=== PATIENT | male | born 1990 | race Caucasian/White ===

== ENCOUNTER 2022-10-05 17:44 | Emergency (ER) | payer MEDICAID ==
[~2022-10-05] VITALS: Ht 157.5 cm; Wt 59.0 kg
--- NOTE | 2022-10-05 18:08 | NUR ---
PT JAMIL FROM THE STREETS, BYSTANDER CALLED 911, WAS "PASSED OUT/SLEEPING" IN THE SIDEWALK. STABLE VITALS. PPT IS SEEN IN ED MULTIPLE TIME FOR ALCOHOL ABUSE. PLACED ON MONITOR. VSS. AWAITING MD FENTON.
--- NOTE | 2022-10-05 21:05 | NUR ---
DR. JORGE COTA AT PT'S BEDSIDE FOR WOUND CARE
--- NOTE | 2022-10-05 22:03 | NUR ---
Patient discharged to home in stable condition. Written and verbal after care instructions given. Patient verbalizes understanding of instruction.
[2022-10-05 22:04] VITALS: BP 128/78
[2022-10-06] MEDS ORDERED: MIRT-91 PO (10:58)
[2022-10-06] MEDS ORDERED: HYDR50TA61 PO (10:58)
[2022-10-06] MEDS ORDERED: QUET25TA PO (10:58)
[2022-10-06] MEDS ORDERED: CITA20TA16 PO (10:58)
[2022-10-06] MEDS ORDERED: OMEP20CA15 PO (10:58)
== END 2022-10-05 22:04 | disposition home or self-care (01) ==
LOC: ER 17:46
DX: S01.81XA Laceration without foreign body of other part of head, initial encounter (principal); F10.129 Alcohol abuse with intoxication, unspecified; W18.39XA Other fall on same level, initial encounter; Y93.89 Activity, other specified; Y92.89 Other specified places as the place of occurrence of the external cause; Y99.8 Other external cause status; Y90.9 Presence of alcohol in blood, level not specified
CPT/HCPCS: 70450-TC; 72125-TC

== ENCOUNTER 2022-10-06 10:23 | Inpatient (IN) | payer MEDICAID ==
[~2022-10-06] VITALS: Ht 157.5 cm; Wt 52.2 kg
[2022-10-06] MEDS ORDERED: IV NS 0.9% 1,000 ML BAG IV ONE (10:30)
[2022-10-06] MEDS ORDERED: NALOXONE PREFILLED SYRINGE 2 MG/2 ML SYRINGE ONE (10:30)
--- NOTE | 2022-10-06 10:35 | NUR ---
BP-162/96, HR-109, R-22, R4OAJ-37% 20mg etomidate and 80mg rocuronium administered
--- NOTE | 2022-10-06 10:36 | NUR ---
pt intubated, 24cm at the lip line Addendum: 10/06/22 at 1813 by DUYEN ET TUBE SIZE 7.5
--- NOTE | 2022-10-06 10:55 | NUR ---
16FR COUDE LANDRY CATHETER PLACE. URIEN CLEAR AND YELLOW, 400CC OUTPUT.
[2022-10-06] MEDS ORDERED: CITA20TA16 PO (10:58)
[2022-10-06] MEDS ORDERED: QUET25TA PO (10:58)
[2022-10-06] MEDS ORDERED: OMEP20CA15 PO (10:58)
[2022-10-06] MEDS ORDERED: MIRT-91 PO (10:58)
[2022-10-06] MEDS ORDERED: HYDR50TA61 PO (10:58)
[2022-10-06 11:07] LABS: BASOPHILS % (AUTO) 0.3 % (0.0-2.0); EOSINOPHILS % (AUTO) 0.4 % (0.0-6.0); HEMATOCRIT 45 % (39-51); HEMOGLOBIN 14.7 g/dL (13.5-17.5); LYMPHOCYTES # (AUTO) 1.3 K/uL (0.8-4.8); LYMPHOCYTES % (AUTO) 15.4 % (20.0-44.0); MEAN CORPUSCULAR HGB CONC 32 g/dl (31.0-36.0); MEAN CORPUSCULAR VOLUME 86 fL (80-96); MONOCYTES # (AUTO) 0.3 K/uL (0.1-1.30); MONOCYTES % (AUTO) 4.1 % (2.0-12.0); NEUTROPHILS # (AUTO) 6.6 K/uL (1.8-8.9); NEUTROPHILS % (AUTO) 79.8 % (43.0-81.0); PLATELET COUNT (AUTO) 290 K/uL (150-450); RED BLOOD CELL COUNT(AUTO) 5.26 MIL/uL (4.5-6.0); WHITE BLOOD COUNT (AUTO) 8.3 K/uL (4.3-11.0)
[2022-10-06 11:22] LABS: CARBON DIOXIDE 28 mmol/L (21-32); CHLORIDE 100 mmol/L (98-107); CREATININE 0.9 mg/dL (0.6-1.3); GLUCOSE 197 mg/dL (74-106); SERUM AMMONIA 22 umol/L (11-32); SODIUM SERUM 136 mmol/L (136-145); UREA NITROGEN, BLOOD 5 mg/dL (7-18)
[2022-10-06] MEDS ORDERED: IV D5/ 0.9% NACL 1,000 ML IV PRN ×2 (11:30)
[2022-10-06 11:35] LABS: ALANINE AMINOTRANSFERASE 97 U/L (12-78); ALBUMIN 4.4 g/dL (3.4-5.0); ALCOHOL, BLOOD 712 mg/dL (0-0); ALKALINE PHOSPHATASE 96 U/L (46-116); ASPARTATE AMINOTRANSFERASE 167 U/L (15-37); BILIRUBIN,DIRECT 0.1 mg/dL (0.0-0.2); BILIRUBIN,TOTAL 0.2 mg/dL (0.2-1.0); TOTAL PROTEIN, SERUM 8.3 g/dL (6.4-8.2)
[2022-10-06 11:36] LABS: ACETAMINOPHEN < 10 ug/ml (10-30); THYROID STIMULATING HORMONE 1.243 uIU/mL (0.358-3.74)
--- NOTE | 2022-10-06 11:40 | NUR ---
URINE COLLECTED AND SENT
--- NOTE | 2022-10-06 11:40 | NUR ---
COVID SWAB COLLECTED AND SENT TO LAB
--- NOTE | 2022-10-06 11:55 | NUR ---
PT'S FAMILY AT BEDSIDE
--- NOTE | 2022-10-06 11:59 | NUR ---
PT TAKEN TO RADIOLOGY FOR CT
[2022-10-06] MEDS ORDERED: NALOXONE PREFILLED SYRINGE 2 MG/2 ML SYRINGE IV ONE (12:30)
[2022-10-06 12:48] LABS: BILIRUBIN,URINE NEGATIVE (NEGATIVE); COLOR,URINE YELLOW (YELLOW); LEUKOCYTE ESTERASE ,URINE NEGATIVE (NEGATIVE); NITRITE, URINE NEGATIVE (NEGATIVE); PROTEIN,URINE NEGATIVE (NEGATIVE); UGLUCOSE TRACE mg/dL (NEGATIVE); UROBILINOGEN,URINE 0.2 EU/dL (0.2)
[2022-10-06] MEDS ORDERED: PIPERACILLIN /TAZOBACTAM 3.375 G in IV D5W 50 ML IV ONE (13:00)
[2022-10-06] MEDS ORDERED: IV NS 0.9% 1,000 ML IV ONE (13:00)
[2022-10-06 13:05] LABS: BACTERIA,URINE Few /HPF (None Seen)
[2022-10-06] MEDS ORDERED: ONDANSETRON HCL/PF 4 MG/2 ML VIAL IVP PRN (14:00)
[2022-10-06] MEDS ORDERED: Z GUARD REMEDY 4 OZ OINT TP PRN (14:00)
[2022-10-06] MEDS ORDERED: MAG HYDROX/AL HYDROX/SIMETH 30 ML UDC PO PRN (14:00)
[2022-10-06] MEDS ORDERED: MAGNESIUM HYDROXIDE 30 ML UDC PO PRN (14:00)
[2022-10-06] MEDS ORDERED: NOREPINEPHRINE 8 MG in IV NS 0.9% 242 ML IV PRN ×2 (14:30→18:30)
[2022-10-06] MEDS ORDERED: PROPOFOL 100 ML IV PRN (14:30)
[2022-10-06] MEDS: PANTOPRAZOLE 40 MG VIAL IV SCH (15:00)
[2022-10-06] MEDS ORDERED: ETOMIDATE 2 MG/ML VIAL IV ONE (15:05)
[2022-10-06] MEDS ORDERED: ROCURONIUM BROMIDE 50 MG/5 ML IV ONE (15:05)
[2022-10-06] MEDS ORDERED: PROPOFOL 200 MG/20 ML VIAL IV ONE (15:05)
[2022-10-06] MEDS ORDERED: PANTOPRAZOLE 40 MG VIAL ONE (15:29)
--- NOTE | 2022-10-06 15:45 | NUR ---
1800CC URINE OUTPUT
[2022-10-06] MEDS: ENOXAPARIN SODIUM 40 MG/0.4 ML DISP.SYRIN SQ SCH (16:00)
[2022-10-06] MEDS: Thiamine 100 MG in IV D5W 50 ML IV SCH (16:00)
[2022-10-06] MEDS: Folic acid 1 MG in IV D5W 50 ML IV SCH (16:00)
[2022-10-06] MEDS: IV NS 0.9% 1,000 ML IV PRN ×2 (16:06→20:03)
[2022-10-06] MEDS ORDERED: ENOXAPARIN SODIUM 40 MG/0.4 ML DISP.SYRIN SQ ONE (16:22)
--- NOTE | 2022-10-06 17:45 | NUR ---
BED ASSIGNMENT 251 AFTER 15 MINS
--- NOTE | 2022-10-06 18:15 | NUR ---
PT REPORT GIVEN TO HOSPICE OFFICE COORDINATOR.
[2022-10-06] MEDS: PROPOFOL 100 ML IV PRN (19:45)
[2022-10-06 19:48] VITALS: BP 106/66
[2022-10-06 20:00] VITALS: BP 111/77
[2022-10-06 21:00] VITALS: BP 109/69
[2022-10-06] MEDS: LORAZEPAM INJ 2 MG/ML VIAL IV PRN (21:09)
[2022-10-06 22:00] VITALS: BP 107/66
--- NOTE | 2022-10-06 22:04 | NUR ---
RT RR decreased from 24 to 16 and FIO2 from 50% to 40% per MD orders post ABG result.
[2022-10-06 22:14] LABS: ABG BASE EXCESS -1.7 mmol/L; ABG PH 7.485 (7.350-7.450); ABG PO2 206.1 mmHg (75.0-100.0); AaDO2 118.9 mmHg; COHb 0.3 % (0.5-1.5); MetHb 0.3 % (0.0-1.5); O2Hb 98.4 % (94.0-97.0); SITE, ABG Right Radial
[2022-10-06 22:14] LABS: ABG BASE EXCESS -7.3 mmol/L; ABG OXYGEN SATURATION 99.2 % (92.0-98.5); ABG PCO2 39.6 mmHg (35.0-45.0); ABG PH 7.292 (7.350-7.450); ABG PO2 226.1 mmHg (75.0-100.0); AaDO2 302.7 mmHg; COHb 0.6 % (0.5-1.5); MetHb 0.5 % (0.0-1.5); O2Hb 98.1 % (94.0-97.0); SITE, ABG Left Radial
[2022-10-06 23:00] VITALS: BP 105/65
[2022-10-07] VITALS (23 sets, daily range): BP systolic 104–139; BP diastolic 59–92
[2022-10-07] MEDS: PROPOFOL 100 ML IV PRN ×2 (01:27→07:23)
[2022-10-07] MEDS: LORAZEPAM INJ 2 MG/ML VIAL IV PRN ×2 (02:03→13:05)
[2022-10-07 05:14] LABS: BASOPHILS % (AUTO) 0.6 % (0.0-2.0); EOSINOPHILS % (AUTO) 0.8 % (0.0-6.0); HEMATOCRIT 32 % (39-51); HEMOGLOBIN 10.8 g/dL (13.5-17.5); LYMPHOCYTES # (AUTO) 1.6 K/uL (0.8-4.8); LYMPHOCYTES % (AUTO) 21.1 % (20.0-44.0); MEAN CORPUSCULAR HGB CONC 33 g/dl (31.0-36.0); MEAN CORPUSCULAR VOLUME 84 fL (80-96); MONOCYTES # (AUTO) 0.5 K/uL (0.1-1.30); MONOCYTES % (AUTO) 7.2 % (2.0-12.0); NEUTROPHILS # (AUTO) 5.2 K/uL (1.8-8.9); NEUTROPHILS % (AUTO) 70.3 % (43.0-81.0); PLATELET COUNT (AUTO) 185 K/uL (150-450); RED BLOOD CELL COUNT(AUTO) 3.86 MIL/uL (4.5-6.0); WHITE BLOOD COUNT (AUTO) 7.5 K/uL (4.3-11.0)
[2022-10-07 05:33] LABS: CALCIUM, SERUM 6.9 mg/dL (8.5-10.1); CREATININE 0.6 mg/dL (0.6-1.3); MAGNESIUM 1.3 mg/dL (1.8-2.4); POTASSIUM 3.6 mmol/L (3.5-5.1)
--- NOTE | 2022-10-07 07:23 | NUR ---
rn notes received patient intubated fio2-40%, peep-5, awake with sedation of 50mcg/kg/min. patient moving head side to side, titrated medication up to the 55mcg/kg/min, also infusing ns@75 ml/hr, on RAC area intact. Hr-108 on bedside monitor,, bp 116/73. bilateral soft wrist restrain intact rechecked circulation. [place] draining via gravity. assist turn and reposition q 2 hr. will follow up.
--- NOTE | 2022-10-07 07:23 | NUR ---
rn notes per Dr Calero order ok to titrated up to the 100mcg/kg/min. order taken and carried out.
[2022-10-07] MEDS ORDERED: PROPOFOL 100 ML IV PRN (08:00)
--- NOTE | 2022-10-07 08:27 | NUR ---
RN NOTES STOP SEDATION AT THIS TIME RT NEXT TO THE BED, PATIENT CPAP MODE ON MECHANICAL VENTILATION, ABG ORDERED.
--- NOTE | 2022-10-07 08:28 | NUR ---
rn notes get order to stop sedation for weaning from went,titrated medication per protocol. patient calm and cooperative, rt aware of. family next to the bed.
[2022-10-07] MEDS: PANTOPRAZOLE 40 MG VIAL IV SCH (08:32)
--- NOTE | 2022-10-07 09:45 | NUR ---
RN NOTES GET CALL FROM LABORATORY , PATIENT GRAM POSITIVE RODS SEEN ON GRAM STAIN OF BLOOD CULTURE , HOSPITALIST NOTIFIED.
--- NOTE | 2022-10-07 09:50 | NUR ---
RN NOTES PATIENT GET EXTUBATED AT THIS TIME. NO ACUTE RESPIRATORY DISTRESS, ROOM AIR, REMOVED RESTRAIN. PATIENT A/O X4. VSS, WILL FOLLOW UP.
--- NOTE | 2022-10-07 09:50 | NUR ---
RT PER DR DARLING PATIENT WAS WEANED AND EXTUBATED. PATIENT AWAKE, ALERT, NO SOB. ON ROOM AIR. MANDO TIAN AT [facility]. Addendum: 10/07/22 at 1111 by JACQUELINE JC RT Amended: Links added.
[2022-10-07] MEDS: Magnesium 1GM/D5W 100ML PREMIX 100 ML IV SCH ×2 (11:21→12:35)
[2022-10-07] MEDS: ACETAMINOPHEN 325 MG TABLET PO PRN (11:21)
--- NOTE | 2022-10-07 11:22 | NUR ---
RN NOTES T-100.2F ADMINISTERED TYLENOL 650 ML, AND START MG 100 ML PER LEVEL OF 1.3.
[2022-10-07] MEDS: IV NS 0.9% 1,000 ML IV PRN (11:25)
[2022-10-07] MEDS ORDERED: Sodium Phosphate 30 MMOL in IV NS 0.9% 250 ML IV SCH (12:00)
--- NOTE | 2022-10-07 12:32 | NUR ---
rn notes t-99.9F, patient tolerated lunch 75%, assist bedside commode , refused pain, no acute respiratory distress. family next to the bed.
--- NOTE | 2022-10-07 13:05 | NUR ---
clark mirza administered Ativan 0.5 mg/ml iv push for anxiety, p- -106, bp128/74. will follow up.
[2022-10-07] MEDS: Thiamine 100 MG in IV D5W 50 ML IV SCH (15:27)
[2022-10-07] MEDS: Folic acid 1 MG in IV D5W 50 ML IV SCH (15:27)
[2022-10-07] MEDS: ENOXAPARIN SODIUM 40 MG/0.4 ML DISP.SYRIN SQ SCH (15:43)
--- NOTE | 2022-10-07 17:31 | NUR ---
rn notes get order of zosyn 3.75 mg q 6hr scheduled. order taken and carried out.
[2022-10-07] MEDS ORDERED: PIPERACILLIN /TAZOBACTAM 3.375 G in IV D5W 50 ML IV ONE (18:00)
--- NOTE | 2022-10-07 18:35 | NUR ---
RN NOTES PATIENT STABLE, NO ACUTE RESPIRATORY DISTRESS, COOPERATIVE, MOTIVATED TO THE SELF CARE, USING URINAL, AND BEDSIDE COMMODE. INFUSING ZOSYN 100ML/HR, AND NS@75ML/HR ON RAC AREA INTACT. CALL LIGHT WITHIN TO REACH, FAMILY NEXT TO THE BED. PATIENT WILL TRANSFER TO THE MED/SURGE UNIT.ENDORSED ONCOMING NURSE RAIZA.
[2022-10-07] MEDS ORDERED: IV NS 0.9% 250 ML IV PRN (19:00)
--- NOTE | 2022-10-07 23:45 | NUR ---
MS RN OPENING NOTE RECEIVED PATIENT IN BED; AWAKE, ALERT AND ORIENTED X 4. ON ROOM AIR; TOLERATING WELL. BREATHING EVEN AND UNLABORED. DENIES ANY PAIN OR DISCOMFORT AT THIS TIME. NO S/S OF RESPIRATORY DISTRESS. ABLE TO MAKE NEEDS KNOWN. WITH IV ACCESS ON RIGHT AC #16G; INTACT, PATENT AND SALINE LOCKED. SAFETY MEASURES IMPLEMENTED: CALL LIGHT AND TABLE WITHIN REACH, SIDE RAILS UP X 2, BED IN LOWEST LOCKED POSITION. WILL CONTINUE PLAN OF CARE.
[2022-10-08] VITALS: BP 120/75
[2022-10-08] MEDS: ACETAMINOPHEN 325 MG TABLET PO PRN (00:20)
--- NOTE | 2022-10-08 00:20 | NUR ---
RN NOTE PATIENT'S TEMP: 100.1. PRN ACETAMINOPHEN 650 MG GIVEN PO ORDERED. WILL CONTINUE TO MONITOR AND REASSESS PT.
[2022-10-08] MEDS: PIPERACILLIN /TAZOBACTAM 3.375 G in IV D5W 100 ML IV SCH ×2 (00:59→08:23)
[2022-10-08 04:00] VITALS: BP 112/75
[2022-10-08 06:30] LABS: BASOPHILS % (AUTO) 0.3 % (0.0-2.0); EOSINOPHILS % (AUTO) 5.7 % (0.0-6.0); HEMATOCRIT 32 % (39-51); HEMOGLOBIN 10.5 g/dL (13.5-17.5); LYMPHOCYTES # (AUTO) 1.3 K/uL (0.8-4.8); LYMPHOCYTES % (AUTO) 18.3 % (20.0-44.0); MEAN CORPUSCULAR HGB CONC 33 g/dl (31.0-36.0); MEAN CORPUSCULAR VOLUME 84 fL (80-96); MONOCYTES # (AUTO) 0.4 K/uL (0.1-1.30); MONOCYTES % (AUTO) 5.4 % (2.0-12.0); NEUTROPHILS # (AUTO) 4.8 K/uL (1.8-8.9); NEUTROPHILS % (AUTO) 70.3 % (43.0-81.0); PLATELET COUNT (AUTO) 154 K/uL (150-450); RED BLOOD CELL COUNT(AUTO) 3.79 MIL/uL (4.5-6.0); WHITE BLOOD COUNT (AUTO) 6.8 K/uL (4.3-11.0)
[2022-10-08 06:47] LABS: CALCIUM, SERUM 8.5 mg/dL (8.5-10.1); CREATININE 0.7 mg/dL (0.6-1.3); MAGNESIUM 2.2 mg/dL (1.8-2.4); PHOSPHORUS 2.5 mg/dL (2.5-4.9); POTASSIUM 3.4 mmol/L (3.5-5.1)
--- NOTE | 2022-10-08 07:00 | NUR ---
RN NOTE PATIENT STABLE. NOT IN ANY FORM OF RESPIRATORY DISTRESS. STABLE ON ROOM AIR. DENIES ANY PAIN OR DISCOMFORT AT THIS TIME. ALL NEEDS ATTENDED. SAFETY MEASURES IN PLACE. CALL LIGHT WITHIN REACH. SIDE RAILS UP X 2. BED IN LOW LOCKED POSITION. ENDORSED TO MORNING SHIFT FOR RAIZA.
[2022-10-08] MEDS ORDERED: THIAMINE HCL 100 MG TABLET PO SCH (09:00)
[2022-10-08] MEDS ORDERED: PANTOPRAZOLE 40 MG TABLET.DR PO SCH (09:00)
[2022-10-08] MEDS ORDERED: FOLIC ACID 1 MG TABLET PO SCH (09:00)
--- NOTE | 2022-10-08 09:22 | NUR ---
WOUND CARE CONSULT: PT PRESENTS WITH RT EYEBROW SUTURED LACERATION, PRESENT ON ADMISSION. NO ERYTHEMA OR DRAINAGE NOTED. PT IS ALERT, INDEPENDENT WITH BED MOBILITY AND CONTINENT. WILL SEE PRN.
--- NOTE | 2022-10-08 10:42 | NUR ---
SW received consult over the weekend alcohol use, SW will follow up at a later time.
[2022-10-08] MEDS ORDERED: POTASSIUM CHLORIDE 20 MEQ TAB.PRT.SR PO SCH (11:00)
--- NOTE | 2022-10-08 11:40 | NUR ---
Paper Testing Supervisor Consult SW received a consult request for alcohol use. Pt. is a 32 y.o. male who was admitted for an overdose. SW met with pt. at bedside. Pt.'s family and fiance were present during the assessment. Pt. appears unkempt and is alert and oriented x4 with a lethargic mood and flat affect. Pt. made normal eye contact and remained cooperative throughout assessment. Pt. reports being ambulatory and independent with ADLs. Pt. states not receiving financial assistance. Pt. confirmed contact information and provided contact information for his mother, Sosa Nayak ([phone]). Pt. reported using alcohol and denied using other drugs. Pt. stated he is feeling anxious about being in the hospital. Pt. reported having a diagnosis of depression and anxiety and is taking Celexa and Vistaril. SW assessed for suicidal and homicidal ideation in which patient denied plan, means, or intent. DC plan: When asked about pt.s plan after being discharged, pt. stated he will be going to stay with his parents in [address] [place] [address]. CHRISTOPHER offered pt. alcohol rehab in which pt. stated he would think it over with his family. SW offered pt. addiction and mental health resources and information on [facility] hospital in which pt. accepted. CHRISTOPHER discussed with nurse who was agreeable. ADDICTION RESOURCES For Drugs and Alcohol [facility] sober living Referrals For Rehabilitation once sober Address:[address] [place] [address] [facility] Rehabilitation Program [id number] [place] [id number] Detox/residential [facility] Substance Abuse Helpline ([facility]) Outpatient, residential treatment, recovery support for youth/adults [facility] www.actionfamilycounsYurpy.Vivorte [facility] Teen programs for drug/alcohol education and support Giovana Giordano [place]. Program for adults, sliding scale provides support and education LucieClose www.GateRocketPict.org [place]; Detox/residential treatment programs; transition to sober living [facility] www.cri-help.org [place]; Outpatient and residential treatment programs; transition to sober living [facility] TEL: [phone] [facility] Anders Avila; Outpatient education and supportive programs for teens and adults [facility] www.oasiswomensrecovery.org [place]; Residential treatment and work program for females only [place]arr www.SimpleGeoxmill village.Biomoti [place]: Outpatient/residential treatment program for teens and young adults [facility] www.[facility].org [place] Detox, inpatient, outpatient for adults and youth [facility], [facility]. [place]; Outpatient programs and referrals to community residential programs. Alcoholics Anonymous -SFV information and meeting and scheduleswww.aa-intergroup.org Rb-Ozsa-Zxhqxzv https://al-anon.org/ [place] support groups for family of alcoholics. Marijuana Anonymous www.madistrict6.org -SFV listing of meetings Narcotics Anonymous www.na.org SOBER LIVING RESOURCES [facility] www.soberhousing.net A non-profit agency that provides resources to recovery and sober living homes throughout [facility] Sober Living Homes: A Work in [facility] [place] [facility], [place] [facility] So[facility] Living Homes: [facility] [phone], [place] [facility] Coed Sober Living Homes: [facility], [place] [facility]--Outpatient [facility] [address], [place] [address] (Specializes in in-depth psychotherapy for emotional distress: anxiety, depression, interpersonal conflicts, life transitions, childhood abuse) [facility] [address] [place] [address] (Assist with solving problem marital difficulties, separation & divorce, aging parents, & grief, chronic & terminal illness) [facility] [address] [place] [address] (Deal with loss & grief, anxiety, marital difficulties) [facility]ental Health Services [address] [facility] [address] [place] [address] (Provide in-home mental services to people who are incapable of leaving their homes) [facility]eds of the Elderly [facility] [address] [place] [address] [facility] [address] [place] [address] Mental Health Services [facility] [address] [place] [address] Services: Outpatient therapy for children, teens, young adults, adults, older adults, and families; Psychiatric services, medication support Psychiatric Outpatient Services [facility] Partial Hospitalization and Intensive Outpatient Program (Managed Care and [place] Only)[address] [facility] [phone] [facility] Partial Hospitalization and Outpatient [id number] [facility] [address] [place], [place] [phone] [facility] [place] [id number] [facility] [address] [place], [place] [phone] [facility] Partial Hospitalization and Outpatient Jnapzkk[address] [place], [phone] Crisis and Hotline Telephone Numbers 24-Hour service unless stated [place] Crisis Hotlines: [facility] Mental Health/Crisis Line........[phone] Suicide Prevention Center (24 Hours).......[phone] Suicide Prevention Crisis Center.......[phone] (24 Hours) Assaults Against Women Hotline.........141.788.6799 (24 Hours -- [facility]) Women and Children Crisis Alf...........[phone] (24 Hours) Child Abuse Hotline............926.232.1133 [facility] (24 Hours)..........[phone] Alcoholics Anonymous (24 Hours)..........[phone] Cocaine Anonymous (24 Hours)............526.281.8958 Narcotics Anonymous (24 Hours)..........[phone] [address] [facility] [address], [place], [place] [address]
--- NOTE | 2022-10-08 12:00 | NUR ---
RN NOTE RUSSIAN LANGUAGE INSTRUCTOR SPOKE TO PATIENT ABOUT REHAB INFORMATION FOR DISCHARGE, PATIENT STATED HE WILL CONSIDER REHAB AT ANOTHER TIME.
--- NOTE | 2022-10-08 13:08 | NUR ---
RN NOTE PATIENT LEFT AT THIS TIME WITH DISCHARGE PACKET WITH FAMILY AMA.
--- NOTE | 2022-10-08 13:08 | NUR ---
RN NOTE PATIENT SIGNED AMA, EXPLAINED RISKS AND BENEFITS, FAMILY AT BEDSIDE. PT STILL INSISTED TO LEAVE. MD AND CHARGE NURSE ARE AWARE.
--- NOTE | 2022-10-08 13:09 | NUR ---
RN NOTE PATIENT REMOVED HIS OWN IV LINE.
--- NOTE | 2022-10-08 13:29 | NUR ---
RN NOTE PATIENT LEFT AT THIS TIME WITH FAMILY WITH DISCHARGE FOLDER. VERBALIZED DISCHARGE INSTRUCTIONS.
== END 2022-10-08 13:00 | disposition left against medical advice (07) | DRG 133 ==
LOC: ER 10:26 → TRANSITION 13:11 → ICU 18:24 → TELE1 10-07 23:18
PROVIDERS: ADMIT Nurse Practitioner Acute Care; ATTEND Nurse Practitioner Acute Care
PROC: 5A1935Z Respiratory Ventilation, Less than 24 Consecutive Hours (ICD-10-PCS; principal; 2022-10-06)
PROC: 0BH18EZ Insertion of Endotracheal Airway into Trachea, Via Natural or Artificial Opening Endoscopic (ICD-10-PCS; 2022-10-06)
DX: J96.01 Acute respiratory failure with hypoxia (principal); G92.8 Other toxic encephalopathy; E87.20 Acidosis, unspecified; F10.129 Alcohol abuse with intoxication, unspecified; Y90.8 Blood alcohol level of 240 mg/100 ml or more; F32.A Depression, unspecified; R74.01 Elevation of levels of liver transaminase levels
CPT/HCPCS: 31720; 36415; 36600; 70450-TC; 71045-TC; 80048-TC; 80076-TC; 81001; 82140-TC; 82150-TC; 82962-TC; 83605-TC; 83690-TC; 83735-TC; 84100-TC; 84443-TC; 84484-TC; 85025-TC; 85730-TC; 87040-TC; 87081-TC; 87086-TC; 94003-TC; 94799-TC; A9563; C9113; G0378; G0480; J1650; J2060; J2310; J2543; J2704; J3411; J3475; J3490; J7030; J7050; J7060

== ENCOUNTER 2023-01-21 01:33 | Emergency (ER) | payer MEDICAID ==
[~2023-01-21] VITALS: Ht 167.6 cm; Wt 68.0 kg
[~2023-01-21 01:33] MED LIST: CITA20TA16 PO; HYDR50TA61 PO; MIRT-91 PO; OMEP20CA15 PO; QUET25TA PO
--- NOTE | 2023-01-21 02:30 | NUR ---
yue, from home, took full bottle of febreeze, had vodka today,denies SI [id number]
--- NOTE | 2023-01-21 03:18 | NUR ---
Patient discharged to home in stable condition. Written and verbal after care instructions given. Patient verbalizes understanding of instruction.
[2023-01-21 03:23] VITALS: BP 140/86
== END 2023-01-21 03:23 | disposition home or self-care (01) ==
LOC: ER 01:34
DX: F10.129 Alcohol abuse with intoxication, unspecified (principal); Z79.899 Other long term (current) drug therapy; Y90.9 Presence of alcohol in blood, level not specified

== ENCOUNTER 2023-05-02 14:44 | Emergency (ER) | payer MEDICAID ==
[~2023-05-02] VITALS: Ht 157.5 cm; Wt 47.2 kg
--- NOTE | 2023-05-02 14:55 | NUR ---
RECEIVED PT 32 YRS MALE FROM WORK BY [employer] FOR ALOC
[2023-05-02] MEDS ORDERED: IV NS 0.9% 1,000 ML BAG IV ONE (16:00)
--- NOTE | 2023-05-02 16:29 | NUR ---
PT RESTING AND ASLEEPY
[2023-05-02 16:33] LABS: BASOPHILS # (AUTO) 0.1 K/uL (0.0-0.2); BASOPHILS % (AUTO) 0.4 % (0.0-2.0); EOSINOPHILS % (AUTO) 0.1 % (0.0-6.0); HEMATOCRIT 42 % (39-51); HEMOGLOBIN 13.2 g/dL (13.5-17.5); LYMPHOCYTES # (AUTO) 3.5 K/uL (0.8-4.8); LYMPHOCYTES % (AUTO) 25.3 % (20.0-44.0); MEAN CORPUSCULAR HGB CONC 32 g/dl (31.0-36.0); MEAN CORPUSCULAR VOLUME 82 fL (80-96); MONOCYTES # (AUTO) 0.6 K/uL (0.1-1.30); MONOCYTES % (AUTO) 4.5 % (2.0-12.0); NEUTROPHILS # (AUTO) 9.5 K/uL (1.8-8.9); NEUTROPHILS % (AUTO) 69.7 % (43.0-81.0); PLATELET COUNT (AUTO) 192 K/uL (150-450); RED BLOOD CELL COUNT(AUTO) 5.08 MIL/uL (4.5-6.0); WHITE BLOOD COUNT (AUTO) 13.7 K/uL (4.3-11.0)
[2023-05-02 16:37] LABS: CALCIUM, SERUM 8.9 mg/dL (8.5-10.1); CARBON DIOXIDE 26 mmol/L (21-32); CHLORIDE 105 mmol/L (98-107); CREATININE 1.3 mg/dL (0.6-1.3); GLUCOSE 97 mg/dL (74-106); POTASSIUM 3.3 mmol/L (3.5-5.1); SODIUM SERUM 143 mmol/L (136-145); UREA NITROGEN, BLOOD 9 mg/dL (7-18)
[2023-05-02 16:42] LABS: ALANINE AMINOTRANSFERASE 26 U/L (12-78); ALBUMIN 4.1 g/dL (3.4-5.0); ALCOHOL, BLOOD 204 mg/dL (0-10); ALKALINE PHOSPHATASE 88 U/L (46-116); ASPARTATE AMINOTRANSFERASE 33 U/L (15-37); BILIRUBIN,DIRECT 0.1 mg/dL (0.0-0.2); BILIRUBIN,TOTAL 0.2 mg/dL (0.2-1.0)
--- NOTE | 2023-05-02 17:46 | NUR ---
FRAIND AT BED SIDE
--- NOTE | 2023-05-02 18:15 | NUR ---
FRAIND AT BED SIDE FULLY UNDERSTOOD
[2023-05-02] MEDS ORDERED: CHLO25CA22 PO ×2 (18:45→21:52)
--- NOTE | 2023-05-02 18:50 | NUR ---
TO CT SCAN
--- NOTE | 2023-05-02 19:05 | NUR ---
IV removed. Catheter intact and site benign. Pressure and 4x4 applied to site. No bleeding noted.
--- NOTE | 2023-05-02 19:08 | NUR ---
Patient discharged to home in stable condition. Written and verbal after care instructions given. Patient verbalizes understanding of instruction.
--- NOTE | 2023-05-02 19:10 | NUR ---
WALKING WITH STADY GAIT
[2023-05-02 19:27] VITALS: BP 133/93
== END 2023-05-02 19:26 | disposition home or self-care (01) ==
LOC: ER 14:46
DX: F10.129 Alcohol abuse with intoxication, unspecified (principal); Y90.7 Blood alcohol level of 200-239 mg/100 ml
CPT/HCPCS: 99285; 96360; 85025; 80048; 80076; 36415; 80143; 80320; J7030; G0480